=== PATIENT | female | born 1955 | race Caucasian/White ===

== ENCOUNTER 2017-11-15 06:07 | Day surgery (SDC) | payer OTHER ==
[2017-11-15] MEDS ORDERED: MIDAZOLAM 1 MG/ML 2 ML INJ ×2 (09:10)
[2017-11-15] MEDS ORDERED: FENTAnyl 50 MCG/ML VIAL (09:10)
== END 2017-11-15 16:17 | disposition home or self-care (01) ==
LOC: GIL 06:07
DX: K31.7 Polyp of stomach and duodenum (principal); K44.9 Diaphragmatic hernia without obstruction or gangrene; K21.9 Gastro-esophageal reflux disease without esophagitis; K29.70 Gastritis, unspecified, without bleeding; I10 Essential (primary) hypertension
CPT/HCPCS: 43239; 87081; 88305